=== PATIENT | male | born 1940 | race Hispanic/Latino ===

== ENCOUNTER 2016-07-12 17:50 | Inpatient (IN) | payer MEDICARE, OTHER ==
[2016-07-12 18:36] LABS: BASO % 0.7 % (0.0-2.0); EOS # 0.2 K/uL (0.0-0.7); EOS % 2.8 % (0.0-4.0); HEMATOCRIT 47.1 % (35.0-51.0); LYMPH # 1.4 K/uL (1.0-4.3); LYMPH % 19.5 % (20.0-40.0); MEAN CELL VOLUME 89.3 fL (80.0-94.0); MEAN CORPUSCULAR HEMOGLOBIN 29.7 pg (27.0-31.0); MEAN CORPUSCULAR HGB CONC 33.2 g/dL (33.0-37.0); MEAN PLATELET VOLUME 8.9 fL (7.2-11.7); MONO # 0.5 K/uL (0.0-0.8); MONO % 7.4 % (0.0-10.0); NRBC % 0.1 % (0.0-2.0); WHITE BLOOD COUNT 7.1 K/uL (4.8-10.8)
[2016-07-12 18:40] LABS: CHLORIDE 101 mmol/L (98-107); POTASSIUM 4.1 mmol/L (3.6-5.2); SODIUM 141 mmol/L (132-148)
[2016-07-12 18:42] LABS: GFR AFRICAN-AMERICAN > 60
[2016-07-12 18:43] LABS: ALB/GLOB RATIO 1.6 (1.0-2.1); ALKALINE PHOSPHATASE 38 U/L (38-126); ALT/SGPT 40 U/L (21-72); AST/SGOT 41 U/L (17-59); BILIRUBIN,TOTAL 0.4 mg/dL (0.2-1.3); BLOOD UREA NITROGEN 21 mg/dL (9-20); CALCIUM 8.7 mg/dl (8.6-10.4); CARBON DIOXIDE 29 mmol/L (22-30); GLUCOSE,RANDOM 94 mg/dL (75-110)
[2016-07-12 19:14] LABS: THYROID STIMULATING HORMONE 2.34 mIU/L (0.46-4.68)
--- NOTE | 2016-07-12 19:34 | C.PDOC ---
History Of Present Illness Pt had a near-syncopal episode yesterday. He went to see Dr. Stacy today who performed an EKG which showed complete heart block. Pt is asymptomatic today. Time Seen by Provider: 07/12/16 18:20 History Per: Patient, Family, Other (Dr. Stacy) Onset/Duration Of Symptoms: Days (1) Current Symptoms Are (Timing): Better Number Of Syncopal Episodes: 1 Fall Associated With With Symptoms: No Severity: Moderate Additional History Per: Prior Records - Symptoms Of CVA Recent Head Trauma: No Past Medical History Reviewed: Historical Data, Nursing Documentation, Vital Signs Vital Signs: Last Vital Signs Temp 97.9 F 07/12/16 18:09 Pulse 30 L 07/12/16 20:45 Resp 14 07/12/16 20:45 BP 180/65 H 07/12/16 20:45 Pulse Ox 98 07/12/16 20:45 - Medical History PMH: HTN Surgical History: No Surg Hx Family History: States: Unknown Family Hx - Social History Hx Alcohol Use: Yes Hx Substance Use: No Review Of Systems Except As Marked, All Systems Reviewed And Found Negative. Constitutional: Negative for: Fever Cardiovascular: Negative for: Chest Pain Respiratory: Negative for: Shortness of Breath Gastrointestinal: Negative for: Vomiting, Abdominal Pain Musculoskeletal: Negative for: Neck Pain, Leg Pain Skin: Negative for: Rash Neurological: Negative for: Weakness, Numbness, Seizures, Altered Mental Status Physical Exam - Physical Exam Appears: Non-toxic, No Acute Distress Skin: Normal Color, Warm, Dry, No Rash Head: Atraumatic, Normacephalic Eye(s): bilateral: PERRL, EOMI Neck: Normal ROM, Supple Chest: Symmetrical Cardiovascular: Rhythm Regular (brachycardia) Respiratory: Normal Breath Sounds, No Accessory Muscle Use Gastrointestinal/Abdominal: Soft, No Tenderness Back: No CVA Tenderness Extremity: Normal ROM, No Pedal Edema, No Calf Tenderness, No Deformity Neurological/Psych: Oriented x3, Normal Cognition, Normal Motor, Normal Sensation ED Course And Treatment - Laboratory Results Result Diagrams: 07/12/16 18:27 07/12/16 18:27 ECG: Interpreted By Me, Viewed By Me ECG Rhythm: 3rd Degree HB, Nonspecific Changes ECG Interpretation: Abnormal Rate From EC O2 Sat by Pulse Oximetry: 97 Pulse Ox Interpretation: Normal - Radiology CXR: Interpreted by Me, Viewed By Me CXR Interpretation: Yes: No Acute Disease - Physician Consult Information Physician Contacted: Jd Malik Outcome Of Conversation: He will see pt in the hospital and evaluate for pacemaker. Progress - Interventions Interventions:: Observation, Oxygen - Data Reviewed Data Reviewed: Lab, Diagnostic imaging, EKG, Old records - Patient Status Patient status: Unchanged - Critical Care Citical Care: Excluding Proc Time Critical Care Time: 45 minutes - Continuity of Care Discussed patient case with:: Patient, Family-HIPPA compliant, ED Nurse, PMD Discussed pt. case with [employer] consultant/specialty: Cardiology, Pulmonary/Crit. Care - Patient Plan Patient Plan: Admission, ICU Disposition Discussed With : Bo Stacy Comment: He saw pt in the ED and wants pt admitted to the ICU under his service. Doctor Will See Patient In The: ED Counseled Patient/Family Regarding: Studies Performed, Diagnosis - Disposition Disposition: HOSPITALIZED Disposition Time: 19:36 Condition: SERIOUS - Clinical Impression Clinical Impression: Complete heart block
[2016-07-12] MEDS ORDERED: Glucagon Recombinant 1 mg Inj IV STA ×3 (19:40→21:12)
[2016-07-12] MEDS ORDERED: Glucagon Recombinant 1 mg Inj ONE (20:13)
--- NOTE | 2016-07-12 21:04 | HP ---
Present in the Emergency Room. CHIEF COMPLAINT: Slight short of breath after carrying a heavy bag and climbing 1 flight of stairs from the basement. HISTORY OF PRESENT ILLNESS: The patient is a 75-year-old white male known to me for many years with hypertension on beta mariah, metoprolol and came to the office today. He noticed some shortness of breath with climbing the stairs yesterday, actually on the day before, with some heavy bag or appliance of about 45 pounds. He was totally fine after that and he carried on his normal routine without any problems. Today, when I returned the call, he was taking a shower and I advised him to come to the office. In the office, he was totally asymptomatic at 100%. We went to the examining room. Blood pressure was normal. He has lost 3 pounds from last visit, 223 I believe, and blood pressure was about 130/70. The pulse was low; however, he usually runs a slight sinus bradycardia due to metoprolol that he takes for many , many years, over a decade or so, 200 mg once a day. Lungs were clear on physical exam. Other than overweight, he was unremarkable except for the bradycardia. I had already advised him to decrease the metoprolol, to stop it altogether, to come back to the office the following week, and we were planning on doing an echocardiogram the following week. While in the office, I said why do we not do an EKG while you are here and the EKG demonstrated complete heart block with a rate of about 35 beats per minute, right bundle branch block type pattern, escape ventricular rhythm, totally 100% asymptomatic. The was with him and we had a very long conversation, over an hour. I advised him that he needed to be hospitalized and he wanted to come to the hospital next week, because he had a lot of things to do in the house over the next few days, etc., etc. Finally, I convinced him to come here to the Emergency Room. I spoke with Dr. Knowles and advised her that we were sending the patient with a complete heart block, totally asymptomatic, and he wanted to drive himself. We had a vaguely discussion and finally the drove him to the Emergency Room. I gave him a copy of the electroardiogram. Since arrival here, he has remained totally asymptomatic. His complete heart block rate varies around 32-35 or so per minute, blood pressure right now is a little hypertensive 170/80-90, because he was very stressed. Respiratory rate and O2 saturation is unremarkable. While in the office with the patient and his , and after speaking with Dr. Knowles in the Emergency Room, I called Dr. Malik the EP and made him aware that I needed his help with consult and his appropriate management because of the complete heart block that this patient had and we are going to obviously hold the metoprolol and hope that perhaps this will go away; I doubt it. PAST MEDICAL HISTORY: Other than the hypertension, he has no big medical issues. ALLERGIES: HE IS ALLERGIC TO PENICILLIN. SOCIAL HISTORY: Nonsmoker. Retired from [employer] in [place] years ago. . Daughter, who I spoke with this afternoon when they were in the office. MEDICATIONS ON ADMISSION: Metoprolol 200 mg once a day. No other medication that I know. REVIEW OF SYSTEMS: Denies any chest pain. That shortness of breath that he had yesterday or the day before when he was carrying heavy equipment, 45 pounds or over, from the basement up that concerned him. Other than that, no other symptoms. Rest of the review of systems otherwise negative. PHYSICAL EXAMINATION: GENERAL: Reveals an elderly male about 10 years younger than stated age, no distress, although now in the Emergency Room, he is a little stressed. SKIN: Warm, dry, no cyanosis or edema. HEENT: Totally unremarkable. NECK: Supple, no lymphadenopathy or thyromegaly. Jugular veins not distended. CHEST: Lungs totally clear to auscultation. CARDIAC: Jugular veins and carotids are normal. I do not see any kind of radha waves to be honest. Precordium, no thrill. Auscultation reveals heart sounds bradycardic as mentioned. Complete heart block and systolic ejection murmur along the sternal border. ABDOMEN: Obese. No gross organomegaly, no localized tenderness. CENTRAL NERVOUS SYSTEM: Unremarkable. COMPLIMENTARY DATA: I wager at this point aside from an EKG that was repeated and obviously showing the complete heart block. Although the chest x-ray, I was told, looks clear; we are awaiting the report. IMPRESSION: 1. Complete heart block, most likely secondary to degenerative changes in His bundle system. 2. Hypertensive heart disease. PLAN: He will be monitored in ICU and I spoke on the phone with Dr. Malik. If this does not clear, obviously, the patient will have a permanent pacemaker. In the meantime, he has a external pacemaker attached to pads. I spoke with Dr. Chand in great details in the ER. The patient is totally asymptomatic at this point and just watch him very closely. Obviously, metoprolol is on hold. A few years ago here, he underwent a Lexiscan stress test which showed grossly normal perfusion and left ventricular systolic function with ejection fraction mildly depressed, which is the same years ago when he had a stress test at another institution by somebody else. His underlying EKG previous left bundle branch block. Bo Stacy MD cc: [id number] TT: 07/12/2016 21:03:39 keshawn STAHL
[2016-07-12] MEDS ORDERED: Glucagon Recombinant 1 mg Inj SC PRN ×2 (21:28→21:31)
--- NOTE | 2016-07-12 21:31 | CP.PCM.CON ---
History of Present Illness - History of Present Illness History of Present Illness: This is a very pleasant 75 year old male with PMH of HTN with daily treatment of toprol XL 200 mg, last dose was this morning. As per patient he lifted something heavy last tuesday (3 days ago) and felt a little sob, once he stopped heavy activity the feeling went away. Since then he feels a little dizzy "for a couple of seconds" every time he goes up the stairs. No other symptoms, feeling very well, bp on the higher side, temperature wnl, he does not take other medication other than toprol and MVT with Zn. He went to see Dr. Bo Stacy who diagnosed him with complete heart block and send him to the ER. He got 4 mg of glucagon in ER with no response of HR, but he is 113 Kg, will give additional 5 mg and observe only with prn glucagon 10 mg q1h. Most likely he has been with complete heart block since tuesday. Only liquids for now. Discussed case with Dr. Malik. 10 ros asked and negative social: ex smoker, no alcohol, no drugs FH: not relevant for the case PMH: HTN NKDA PE: bp 189/73 mmhg, hr 23 bpm, rr 16 bpm, T 97.9 F aaox3 s1, s2 irregular, bradycardia lungs good bilateral air movement abdomen global soft, non tender good muscle tone/strength skin intact a/p: 3rd degree AV block: asymptomatic, external pacemaker connected , glucagon drip , angela liquids Past Patient History - Infectious Disease Hx of Infectious Diseases: None - Past Social History Smoking Status: Former Smoker - CARDIAC Hx Hypertension: Yes - PSYCHIATRIC Hx Substance Use: No - SURGICAL HISTORY Hx Surgeries: No Meds Allergies/Adverse Reactions: Allergies Allergy/AdvReac Type Severity Reaction Status Date / Time No Known Allergies Allergy Verified 07/12/16 18:12 - Medications Medications: Current Medications Glucagon (Glucagen Diagnostic Kit) 1 mg SC Q1H PRN PRN Reason: Other Results - Vital Signs Recent Vital Signs: Last Vital Signs Temp 97.9 F 07/12/16 18:09 Pulse 30 L 07/12/16 20:45 Resp 14 07/12/16 20:45 BP 180/65 H 07/12/16 20:45 Pulse Ox 97 07/12/16 21:29 - Labs Result Diagrams: 07/12/16 18:27 07/12/16 18:27
[2016-07-12] MEDS ORDERED: SODIUM CHLORIDE 0.9% IV ONE (22:15)
[2016-07-12] MEDS ORDERED: GLUCAGON IV ONE (22:15)
[2016-07-13 07:01] LABS: CHLORIDE 103 mmol/L (98-107); POTASSIUM 4.8 mmol/L (3.6-5.2); SODIUM 139 mmol/L (132-148)
[2016-07-13 07:03] LABS: GFR AFRICAN-AMERICAN > 60
[2016-07-13 07:04] LABS: BLOOD UREA NITROGEN 23 mg/dL (9-20); CALCIUM 8.4 mg/dl (8.6-10.4); CARBON DIOXIDE 24 mmol/L (22-30); GLUCOSE,RANDOM 75 mg/dL (75-110)
[2016-07-13 07:17] LABS: FT3 3.67 pg/mL (2.77-5.27)
[2016-07-13 07:31] LABS: THYROID STIMULATING HORMONE 1.26 mIU/L (0.46-4.68)
--- NOTE | 2016-07-13 08:21 | CP.CCUPN ---
Addendum entered and electronically signed by Kim Soliz DO 07/13/16 13:45 : 07/13/16 Cardiac Cath- 50% stenosis LAD. The patient is s/p transvenous pacemaker placement and cardiac catheterization with Dr. Rodriguez. The patient's pacer is set to 60bpm. Avoid beta mariah medications (Holding home Toprol XL)- BP control with Cozaar 50mg PO daily supine x 3 hours, then head of bed can be elevated to 45* Original Note: <Kim Soliz - Last Filed: 07/13/16 10:36> CCU Subjective - Physician Review Subjective (Free Text): Patient was seen and examined at bedside. 75M with PMHx of HTN (metoprolol XL 200mg PO daily) was sent to the ED, due to an abnormal EKG that was done in his PMD's office. Patient was found to have 3rd degree heart block, with HR in the 20s. Cardiology was consulted, Dr. Malik, patient was sent to the [facility] s /p transvenous pacing. Plan is for pacemaker tomorrow. Patient currently has no dizziness, headaches, chest pain, or SOB. CCU Objective - Vital Signs / Intake & Output Vital Signs (Last 4 hours): Vital Signs Pulse Resp BP Pulse Ox 07/13/16 07:00 54 L 18 140/70 99 Intake and Output (Last 8hrs): Intake & Output 07/12/16 07/13/16 07/13/16 22:59 06:59 14:59 Intake Total 50 0 0 Output Total 300 0 0 Balance -250 0 0 Intake: Oral 50 0 0 Output: Urine 300 0 0 Urine, Voided 300 0 0 - Physical Exam Head: Positive for: Atraumatic, Normocephalic Pupils: Positive for: PERRL Extroacular Muscles: Positive for: EOMI Conjunctiva: Positive for: Normal Mouth: Positive for: Moist Mucous Membranes Neck: Positive for: Normal Range of Motion Respiratory/Chest: Positive for: Clear to Auscultation, Good Air Exchange. Negative for: Respiratory Distress, Accessory Muscle Use, Decreased Breath Sounds Cardiovascular: Positive for: Bradycardic Abdomen: Positive for: Normal Bowel Sounds. Negative for: Tenderness, Distention Upper Extremity: Positive for: Normal Inspection, NORMAL PULSES. Negative for: Cyanosis, Edema Lower Extremity: Positive for: Normal Inspection, NORMAL PULSES. Negative for: Edema, CALF TENDERNESS Skin: Positive for: Warm, Dry, Normal Color Psychiatric: Positive for: Alert, Oriented x 3 - Medications Active Medications: Active Medications Generic Name Dose Route Start Last Admin Trade Name Freq PRN Reason Stop Dose Admin Acetaminophen 650 mg 07/12/16 21:52 Tylenol 325mg Tab PO Q6 PRN Pain, Mild (1-3) Ondansetron HCl 4 mg 07/12/16 22:15 Zofran Inj IVP Q6H PRN Nausea/Vomiting Pantoprazole Sodium 40 mg 07/13/16 10:00 Protonix Ec Tab PO DAILY JORDAN - Patient Studies Lab Studies: Lab Studies 07/13/16 07/13/16 Range/Units 06:34 06:34 Sodium 139 (132-148) mmol/L Potassium 4.8 (3.6-5.2) mmol/L Chloride 103 (98-107) mmol/L Carbon Dioxide 24 (22-30) mmol/L Anion Gap 16 (10-20) BUN 23 H (9-20) mg/dL Creatinine 1.1 (0.8-1.5) MG/DL Est GFR ( Amer) > 60 Est GFR (Non-Af Amer) > 60 Random Glucose 75 (75-110) mg/dL Calcium 8.4 L (8.6-10.4) mg/dl Free T4 1.08 (0.78-2.19) ng/dL TSH 3rd Generation 1.26 (0.46-4.68) mIU/L Laboratory Results - last 24 hr 07/13/16 07/13/16 06:34 06:34 Sodium 139 Potassium 4.8 Chloride 103 Carbon Dioxide 24 Anion Gap 16 BUN 23 H Creatinine 1.1 Est GFR ( Amer) > 60 Est GFR (Non-Af Amer) > 60 Random Glucose 75 Calcium 8.4 L Free T4 1.08 TSH 3rd Generation 1.26 Critical Care Progress Note - Nutrition Nutrition: Nutrition Category Date Time Status NPO Diet [DIET] Diets 07/13/16 Breakfast Active Assessment/Plan - Assessment and Plan (Free Text) Assessment: 75 M with PMHx of HTN was sent from his PMD's office to the ED for 3rd degree heart block found on EKG. Plan: 3rd Degree Heart Block * HR 20-30s * Glucagon was given for reversal of B-mariah * Cardiology, Dr. Malik consulted- help appreciated. Patient underwent transvenous cardiac pacing today. Plan is for pacemaker placement tomorrow. * TSH, T4 WNL HTN * Held home medication: Metoprolol XL 200mg PO daily Prophylaxis * GI PPX: Protonix 40mg PO Daily * DVT PPX: Heparin 5000u SC Q12, SCDs * Heart Healthy Diet, will be held NPO tonight for pacemaker placement tomorrow * Zofran PRN for nausea DW Heydi Sky DO, PGY-1 <Arcadio Rowe S - Last Filed: 07/13/16 17:46> CCU Objective - Vital Signs / Intake & Output Vital Signs (Last 4 hours): Vital Signs Temp Pulse Resp BP Pulse Ox 07/13/16 17:00 64 16 168/79 H 95 07/13/16 16:00 97.3 F L 60 18 156/79 H 98 07/13/16 15:00 57 L 16 112/64 95 07/13/16 14:00 67 16 136/56 L 94 L Intake and Output (Last 8hrs): Intake & Output 07/13/16 07/13/16 07/13/16 06:59 14:59 22:59 Intake Total 0 510 180 Output Total 0 550 0 Balance 0 -40 180 Intake: Intake, IV Amount 90 180 Left Antecubital 90 180 Oral 0 420 Output: Urine 0 550 0 Urine, Voided 0 550 0 - Medications Active Medications: Active Medications Generic Name Dose Route Start Last Admin Trade Name Freq PRN Reason Stop Dose Admin Acetaminophen 650 mg 07/12/16 21:52 Tylenol 325mg Tab PO Q6 PRN Pain, Mild (1-3) Heparin Sodium (Porcine) 5,000 units 07/13/16 10:00 07/13/16 12:19 Heparin SC 5,000 units Q12 JORDAN Administration Sodium Chloride 1,000 mls @ 60 mls/hr 07/13/16 12:45 07/13/16 13:33 Sodium Chloride 0.45% IV 60 mls/hr .[id number] JORDAN Administration Losartan Potassium 50 mg 07/14/16 10:00 Cozaar PO DAILY JORDAN Ondansetron HCl 4 mg 07/12/16 22:15 Zofran Inj IVP Q6H PRN Nausea/Vomiting Pantoprazole Sodium 40 mg 07/13/16 10:00 07/13/16 12:19 Protonix Ec Tab PO 40 mg DAILY JORDAN Administration - Patient Studies Lab Studies: Lab Studies 07/13/16 07/13/16 07/13/16 Range/Units 11:09 11:09 06:34 Sodium (132-148) mmol/L Potassium (3.6-5.2) mmol/L Chloride (98-107) mmol/L Carbon Dioxide (22-30) mmol/L Anion Gap (10-20) BUN (9-20) mg/dL Creatinine (0.8-1.5) MG/DL Est GFR ( Amer) Est GFR (Non-Af Amer) Random Glucose (75-110) mg/dL Calcium (8.6-10.4) mg/dl Free T4 1.08 (0.78-2.19) ng/dL TSH 3rd Generation (0.46-4.68) mIU/L Hepatitis A IgM Ab Negative (NEGATIVE) Hep Bs Antigen Negative (NEGATIVE) Hep B Core IgM Ab Negative (NEGATIVE) Hepatitis C Antibody Negative (NEGATIVE) HIV 1&2 Antibody Screen Negative (NEGATIVE) 07/13/16 Range/Units 06:34 Sodium 139 (132-148) mmol/L Potassium 4.8 (3.6-5.2) mmol/L Chloride 103 (98-107) mmol/L Carbon Dioxide 24 (22-30) mmol/L Anion Gap 16 (10-20) BUN 23 H (9-20) mg/dL Creatinine 1.1 (0.8-1.5) MG/DL Est GFR ( Amer) > 60 Est GFR (Non-Af Amer) > 60 Random Glucose 75 (75-110) mg/dL Calcium 8.4 L (8.6-10.4) mg/dl Free T4 (0.78-2.19) ng/dL TSH 3rd Generation 1.26 (0.46-4.68) mIU/L Hepatitis A IgM Ab (NEGATIVE) Hep Bs Antigen (NEGATIVE) Hep B Core IgM Ab (NEGATIVE) Hepatitis C Antibody (NEGATIVE) HIV 1&2 Antibody Screen (NEGATIVE) Laboratory Results - last 24 hr 07/13/16 07/13/16 07/13/16 06:34 06:34 11:09 Sodium 139 Potassium 4.8 Chloride 103 Carbon Dioxide 24 Anion Gap 16 BUN 23 H Creatinine 1.1 Est GFR ( Amer) > 60 Est GFR (Non-Af Amer) > 60 Random Glucose 75 Calcium 8.4 L Free T4 1.08 TSH 3rd Generation 1.26 Hepatitis A IgM Ab Negative Hep Bs Antigen Negative Hep B Core IgM Ab Negative Hepatitis C Antibody Negative HIV 1&2 Antibody Screen 07/13/16 11:09 Sodium Potassium Chloride Carbon Dioxide Anion Gap BUN Creatinine Est GFR ( Amer) Est GFR (Non-Af Amer) Random Glucose Calcium Free T4 TSH 3rd Generation Hepatitis A IgM Ab Hep Bs Antigen Hep B Core IgM Ab Hepatitis C Antibody HIV 1&2 Antibody Screen Negative Critical Care Progress Note - Nutrition Nutrition: Nutrition Category Date Time Status Heart Healthy Diet [DIET] Diets 07/13/16 Lunch Active NPO Diet [DIET] Diets 07/14/16 Breakfast Active Attending/Attestation - Attestation I have personally seen and examined this patient.: Yes I have fully participated in the care of the patient.: Yes I have reviewed all pertinent clinical information: Yes Notes (Text): 07/13/16 17:42 Patient seen and examined in the intensive care unit. Case discussed with staff in the morning rounds. Status post Cardiac Cath- 50% stenosis LAD. The patient is s/p transvenous pacemaker placement Plan for permanent pacemaker tomorrow
--- NOTE | 2016-07-13 09:36 | RAD ---
PROCEDURE: CHEST RADIOGRAPH, 1 VIEW HISTORY: Bradycardia COMPARISON: None available. FINDINGS: LUNGS: Mild venous congestion. Right hilar prominence. PLEURA: No pneumothorax or pleural fluid seen. CARDIOVASCULAR: Mild cardiomegaly. OSSEOUS STRUCTURES: No significant abnormalities. VISUALIZED UPPER ABDOMEN: Normal. OTHER FINDINGS: None. IMPRESSION: Mild venous congestion. Right hilar prominence.
[2016-07-13] MEDS ORDERED: Lidocaine 2% Inj (20ml) ONE (09:39)
[2016-07-13] MEDS ORDERED: Midazolam 2 MG/2 ML VIAL ONE (09:50)
[2016-07-13] MEDS ORDERED: Iohexol 350mg/ml 100 ML ONE (10:07)
--- NOTE | 2016-07-13 11:31 | CP.PCM.CON ---
<Rivera Arriola - Last Filed: 07/13/16 17:07> History of Present Illness - History of Present Illness History of Present Illness: Cardiology Consultation Note Dr. Malik CC: Complete Heart Block HPI: This is a 75 year old male with a PMH notable for HTN presenting for cardiac evaluation of SOB and dizziness 2/2 to complete heart block with symptomatic bradycardia. The patient notes that his only home medication is toprol XL 200mg PO daily. The patient reports compliance with the medication. The patient notes that his symptoms of SOB, dizziness, and lightheadedness started abruptly on Tuesday (07/09/16) when he was moving heavy boxes up a flight of stairs. The episodes have been intermittent and last for approximately 2 minutes. The patient is currently asymptomatic. The patient is s/p transvenous pacemaker placement and cardiac catheterization with Dr. Rodriguez. The patient's pacer is set to 60bpm. The patient tolerated the procedure well. The patient presently denies all cardiopulmonary complaints. Previously, the patient had an EKG on 07/12/16 which revealed complete, 3rd degree heart block at 31bpm, a physiologic axis, normal QRS duration and QTc interval, T wave abnormality in lateral leads, inferior infarct age undetermined , and RBBB. PMH: HTN Medications: Metoprolol 200 mg PO daily Allergies: NKDA PSH: wisdom teeth extraction over 10 years ago FH: Father of PR at 72 y.o., denies other familiar cardiac history Social: Quit smoking in 1985 used to smoke 1 pack every 2-3 days, drinks EtOH socially, denies illicit drug use, eats balanced diet. Hospitalizations: Denies PMD: Dr. Stacy Review of Systems - Review of Systems All systems: reviewed and no additional remarkable complaints except - Constitutional Constitutional: absent: Chills, Fatigue, Fever - EENT Eyes: absent: Blurred Vision, Change in Vision Ears: absent: Decreased Hearing, Tinnitus Nose/Mouth/Throat: absent: Nose Pain, Odynophagia, Facial Pain - Cardiovascular Cardiovascular: Lightheadedness, Slow Heart Rate. absent: Chest Pain, Irregular Heart Rhythm, Palpitations, Syncope - Respiratory Respiratory: Dyspnea, Dyspnea on Exertion. absent: Cough - Gastrointestinal Gastrointestinal: absent: Abdominal Pain, Constipation, Diarrhea, Nausea, Vomiting - Genitourinary Genitourinary: absent: Change in Urinary Stream, Difficulty Urinating - Musculoskeletal Musculoskeletal: absent: Arthralgias, Stiffness, Tingling - Integumentary Integumentary: absent: Lesions, Rash, Wounds - Neurological Neurological: absent: Memory Loss, Sensory Deficit, Syncope, Tingling, Tremor, Vertigo, Weakness - Endocrine Endocrine: absent: Cold Intolorance, Heat Intolorance, Polydipsia, Polyphagia Past Patient History - Infectious Disease Hx of Infectious Diseases: None - Past Medical History & Family History Past Medical History?: Yes - Past Social History Smoking Status: Former Smoker - CARDIAC Hx Hypertension: Yes - PULMONARY Hx Respiratory Disorders: No - NEUROLOGICAL Hx Neurological Disorder: No - HEENT Hx HEENT Problems: Yes Other/Comment: eyeglasses for reading - RENAL Hx Chronic Kidney Disease: No - ENDOCRINE/METABOLIC Hx Endocrine Disorders: No - HEMATOLOGICAL/ONCOLOGICAL Hx Blood Disorders: No - INTEGUMENTARY Hx Dermatological Problems: No - MUSCULOSKELETAL/RHEUMATOLOGICAL Hx Musculoskeletal Disorders: No Hx Falls: No - GASTROINTESTINAL Hx Gastrointestinal Disorders: No - GENITOURINARY/GYNECOLOGICAL Hx Genitourinary Disorders: No - PSYCHIATRIC Hx Substance Use: No - SURGICAL HISTORY Hx Surgeries: No - ANESTHESIA Hx Anesthesia: No Hx Anesthesia Reactions: No Hx Malignant Hyperthermia: No Has any member of the family had a problem w/ anesthesia?: No Meds Allergies/Adverse Reactions: Allergies Allergy/AdvReac Type Severity Reaction Status Date / Time No Known Allergies Allergy Verified 07/12/16 18:12 - Medications Medications: Current Medications Acetaminophen (Tylenol 325mg Tab) 650 mg PO Q6 PRN PRN Reason: Pain, Mild (1-3) Heparin Sodium (Porcine) (Heparin) 5,000 units SC Q12 [facility] Ondansetron HCl (Zofran Inj) 4 mg IVP Q6H PRN PRN Reason: Nausea/Vomiting Pantoprazole Sodium (Protonix Ec Tab) 40 mg PO DAILY [facility] Physical Exam - Constitutional Appears: Well, No Acute Distress - Head Exam Head Exam: ATRAUMATIC, NORMAL INSPECTION, NORMOCEPHALIC - Eye Exam Eye Exam: EOMI, Normal appearance - ENT Exam ENT Exam: Mucous Membranes Moist, Normal Exam - Neck Exam Neck exam: Positive for: Full Rom, Normal Inspection. Negative for: Lymphadenopathy, Tenderness Additional comments: transvenous pacing wire in place. no erythema, no edema, no exudate - Respiratory Exam Respiratory Exam: Clear to Auscultation Bilateral, NORMAL BREATHING PATTERN. absent: Rales, Rhonchi, Wheezes - Cardiovascular Exam Cardiovascular Exam: REGULAR RHYTHM, RRR, +S1, +S2. absent: Diastolic murmur, Systolic Murmur Additional comments: Transvenous pacing wire present (60bpm rate) incision area is clean, dry, intact - GI/Abdominal Exam GI & Abdominal Exam: Normal Bowel Sounds, Soft. absent: Distended, Firm, Guarding, Tenderness - Extremities Exam Extremities exam: Positive for: normal capillary refill, normal inspection, pedal pulses present Additional comments: cath site inspection: no bruit no hematoma palpable dressing C/D/I - Neurological Exam Neurological exam: Alert, CN II-XII Intact, Oriented x3 - Skin Skin Exam: Dry, Intact, Normal Color, Warm Results - Vital Signs Recent Vital Signs: Last Vital Signs Temp 98.5 F 07/13/16 03:56 Pulse 54 L 07/13/16 07:00 Resp 18 07/13/16 07:00 BP 140/70 07/13/16 07:00 Pulse Ox 99 07/13/16 07:00 - Labs Result Diagrams: 07/12/16 18:27 07/13/16 06:34 Labs: Laboratory Results - last 24 hr 07/13/16 07/13/16 06:34 06:34 Sodium 139 Potassium 4.8 Chloride 103 Carbon Dioxide 24 Anion Gap 16 BUN 23 H Creatinine 1.1 Est GFR ( Amer) > 60 Est GFR (Non-Af Amer) > 60 Random Glucose 75 Calcium 8.4 L Free T4 1.08 TSH 3rd Generation 1.26 Assessment & Plan (1) Complete heart block Assessment and Plan: Plan for permanent pacemaker placement tomorrow 3pm with Dr. Malik - consent signed in chart - patient and family aware of procedure - all questions and concerns addressed on rounds at the bedside Transvenous pacemaker placed this morning by Dr. Rodriguez (set to 60bmp)- pacing wire at RV apex Hold AM Heparin dose- resume this evening 22:00 PM 1/2 NS 60ml/hr x 12hr Avoid beta mariah medications (Holding home Toprol XL)- BP control with Cozaar 50mg PO daily supine x 3 hours, then head of bed can be elevated to 45* Tylenol 650mg PO q6 PRN pain (1-3) 07/13/16 Cardiac Cath- 50% stenosis LAD- official report pending 07/12/16 EKG- complete, 3rd degree heart block at 31bpm, a physiologic axis, normal QRS duration and QTc interval, T wave abnormality in lateral leads, inferior infarct age undetermined, and RBBB Case Discussed with Dr. King Arriola PGY1 Status: Acute (2) HTN (hypertension) Assessment and Plan: hold toprol for now normotensive currently Cozaar 50mg PO daily for HTN (hold SBP <100mmHg) Status: Chronic - Date & Time Date: 07/13/16 Time: 12:43 <Jd Malik - Last Filed: 08/12/16 10:10> Results - Vital Signs Recent Vital Signs: Last Vital Signs Temp 98.3 F 07/15/16 12:00 Pulse 76 07/15/16 12:00 Resp 16 07/15/16 12:00 BP 145/80 07/15/16 11:28 Pulse Ox 96 07/15/16 12:00 - Labs Result Diagrams: 07/15/16 06:15 07/15/16 06:15 Attending/Attestation - Attestation I have personally seen and examined this patient.: Yes I have fully participated in the care of the patient.: Yes I have reviewed all pertinent clinical information: Yes Notes (Text): 08/12/16 10:10 Pt with 3rd degree heart block for ppm stable bp tcp at bedside
[2016-07-13] MEDS: Pantoprazole 40 mg EC Tab PO SCH (12:19)
[2016-07-13] MEDS: Sodium Chloride 0.45% 1,000 ML IV SCH (13:33)
--- NOTE | 2016-07-13 17:05 | PN ---
DATE: 07/13/2016 LOCATION: Presently in ICU bed #6. Remains totally stable and totally asymptomatic. He denies any shortness of breath, any palpitation, any dizziness or chest pain. This morning I called the unit and I was told that he was scheduled for a transvenous pacemaker as well as a left cardiac catheterization, done by Dr. Rodriguez. I came to the hospital and I spoke personally with Dr. Rodriguez. These 2 procedures were totally uneventful. At this moment, he is lying flat in bed after the procedure. The temporary pacemaker has been set around 50 beats per minute and is pacing quite well. He has a dressing in the right groin site of the entry for the left cardiac catheterization, that demonstrated basically normal coronary with minimal nonobstructive disease in the mid to distal LAD and somewhere about 40% to 50% or perhaps 60% totally inconsequential. The left ventricular function appears to be mildly depressed. REVIEW OF SYSTEMS: Rest of the review of systems otherwise negative. PHYSICAL EXAMINATION: GENERAL: Alert, oriented, in good mood, in no distress whatsoever. VITAL SIGNS: As follows: Blood pressure in the range of about 120, 130 over 80 , the highest at 150/80. He is afebrile and respiratory rate, O2 saturations unremarkable. NECK: From the cardiopulmonary viewpoint, jugular veins remain flat. LUNGS: Clear. HEART: Sounds normal in intensity and regular with slight systolic murmur, which is chronic. ABDOMEN: No localized tenderness. CENTRAL NERVOUS SYSTEM: Totally unremarkable. COMPLIMENTARY DATA: Today shows electrolytes are within normal limits. Creatinine of 1.1. Yesterday, some of the blood tests ____ of the time on admission, which included a thyroid profile and all blood chemistries, CBCs, etc., they were all grossly unremarkable. I see here some serologic tests for hepatitis etc., etc. We are looking into that and the reason for this. Chest x-ray done yesterday, as I mentioned, showed no obvious problems, mild cardiomegaly, but this was an AP view, so difficult to read too much into that. IMPRESSION: 1. Complete heart block. 2. Hypertensive heart disease. PLAN: I had a long discussion with Dr. Rodriguez, who had been told by Dr. Malik to do the stent and again later on I spoke with Dr. Malik concerning how soon to proceed with permanent pacing. Hopefully, this will be, according to him, probably will be done tomorrow afternoon. Insofar as the EKG , one cannot read too much into this EKG since it shows complete heart block with some ventricular escape rhythm. No one can mention anything about an inferior infarction, etc. at this point in time. He is totally benign at this moment. We will discuss in more details later on personally. While I was there, the came and I had a very long conversation again with her and they are aware that most likely permanent pacemaker will be done tomorrow. Bo Stacy MD cc: [id number] TT: 07/13/2016 17:04:16 Confirmation # [id number] Dictation # [id number] sn MTDD
--- NOTE | 2016-07-13 20:42 | CP.PCM.PN ---
Subjective - Date & Time of Evaluation Date of Evaluation: 07/13/16 Time of Evaluation: 12:10 - Subjective Subjective: Patient with complete Heart Block Patient s/p Cath and TVP placement Non Obstructive coronaries EF 40% TVP placed from Right IJ Further management as per Dr. Malik and Dr. Stacy I will sign off Thank youJ Objective - Vital Signs/Intake and Output Vital Signs (last 24 hours): Temp Pulse Resp BP Pulse Ox 97.3 F L 61 14 136/70 92 L 07/13/16 16:00 07/13/16 20:00 07/13/16 20:00 07/13/16 19:15 07/13/16 20:00 Intake and Output: 07/13/16 07/14/16 18:59 06:59 Intake Total 1110 Output Total 1025 Balance 85 - Medications Medications: Current Medications Acetaminophen (Tylenol 325mg Tab) 650 mg PO Q6 PRN PRN Reason: Pain, Mild (1-3) Heparin Sodium (Porcine) (Heparin) 5,000 units SC Q12 [facility] Last Admin: 07/13/16 12:19 Dose: 5,000 units Sodium Chloride (Sodium Chloride 0.45%) 1,000 mls @ 60 mls/hr IV .[id number] [facility] Last Admin: 07/13/16 13:33 Dose: 60 mls/hr Losartan Potassium (Cozaar) 50 mg PO DAILY [facility] Ondansetron HCl (Zofran Inj) 4 mg IVP Q6H PRN PRN Reason: Nausea/Vomiting Pantoprazole Sodium (Protonix Ec Tab) 40 mg PO DAILY [facility] Last Admin: 07/13/16 12:19 Dose: 40 mg - Labs Labs: 07/13/16 06:34 PT 11.0 SECONDS (9.7-12.2) 07/12/16 18:27 INR 1.0 07/12/16 18:27 APTT 30 SECONDS (21-34) 07/12/16 18:27
[2016-07-14] MEDS: Sodium Chloride 0.45% 1,000 ML IV SCH (06:21)
[2016-07-14 06:25] LABS: BASO % 0.6 % (0.0-2.0); EOS # 0.2 K/uL (0.0-0.7); EOS % 2.8 % (0.0-4.0); MEAN CELL VOLUME 89.1 fL (80.0-94.0); MEAN CORPUSCULAR HEMOGLOBIN 29.5 pg (27.0-31.0); MEAN CORPUSCULAR HGB CONC 33.1 g/dL (33.0-37.0); MEAN PLATELET VOLUME 8.9 fL (7.2-11.7); MONO # 0.5 K/uL (0.0-0.8); MONO % 7.2 % (0.0-10.0); RED CELL DISTRIBUTION WIDTH 13.7 % (11.5-14.5); WHITE BLOOD COUNT 6.8 K/uL (4.8-10.8)
[2016-07-14 06:43] LABS: CHLORIDE 102 mmol/L (98-107); POTASSIUM 4.4 mmol/L (3.6-5.2); SODIUM 137 mmol/L (132-148)
[2016-07-14 06:45] LABS: ALB/GLOB RATIO 1.6 (1.0-2.1); AST/SGOT 29 U/L (17-59); CARBON DIOXIDE 23 mmol/L (22-30); GFR AFRICAN-AMERICAN > 60; TOTAL PROTEIN 6.5 g/dL (6.3-8.3)
[2016-07-14 06:46] LABS: ALKALINE PHOSPHATASE 40 U/L (38-126); ALT/SGPT 33 U/L (21-72); BLOOD UREA NITROGEN 18 mg/dL (9-20); CALCIUM 8.6 mg/dl (8.6-10.4); GLUCOSE,RANDOM 106 mg/dL (75-110); MAGNESIUM 2.1 mg/dL (1.6-2.3)
--- NOTE | 2016-07-14 09:39 | CP.PCM.PN ---
<Rivera Arriola - Last Filed: 07/14/16 18:32> Subjective - Date & Time of Evaluation Date of Evaluation: 07/14/16 Time of Evaluation: 09:36 - Subjective Subjective: Cardiology Progress Note Dr. Malik Patient seen and examined at the bedside. No acute distress. No acute events overnight. Nursing staff reports no issues. The patient reports that he had on episode of palpitations overnight that lasted approximately 1minute, but he reports that the symptoms resolved spontaneously and have not recurred. The patient is NPO for OR today for PPM placement. The patient presently denies all cardiopulmonary symptoms. 12 point review of systems performed and returned negative. Objective - Vital Signs/Intake and Output Vital Signs (last 24 hours): Temp Pulse Resp BP Pulse Ox 97.4 F L 61 15 130/70 95 07/14/16 08:00 07/14/16 08:00 07/14/16 08:00 07/14/16 08:00 07/14/16 08:00 Intake and Output: 07/14/16 07/14/16 06:59 18:59 Intake Total 1600 180 Output Total 1300 300 Balance 300 -120 - Medications Medications: Current Medications Acetaminophen (Tylenol 325mg Tab) 650 mg PO Q6 PRN PRN Reason: Pain, Mild (1-3) Heparin Sodium (Porcine) (Heparin) 5,000 units SC Q12 [facility] Last Admin: 07/13/16 21:46 Dose: Not Given Sodium Chloride (Sodium Chloride 0.45%) 1,000 mls @ 60 mls/hr IV .[id number] [facility] Last Admin: 07/14/16 06:21 Dose: 60 mls/hr Losartan Potassium (Cozaar) 50 mg PO DAILY [facility] Ondansetron HCl (Zofran Inj) 4 mg IVP Q6H PRN PRN Reason: Nausea/Vomiting Pantoprazole Sodium (Protonix Ec Tab) 40 mg PO DAILY [facility] Last Admin: 07/13/16 12:19 Dose: 40 mg - Labs Labs: 07/14/16 06:18 07/14/16 06:18 PT 11.6 SECONDS (9.7-12.2) 07/14/16 06:18 INR 1.0 07/14/16 06:18 APTT 29 SECONDS (21-34) 07/14/16 06:18 - Additional Findings Additional findings: - Constitutional Appears: Well, No Acute Distress - Head Exam Head Exam: ATRAUMATIC, NORMAL INSPECTION, NORMOCEPHALIC - Eye Exam Eye Exam: EOMI, Normal appearance - ENT Exam ENT Exam: Mucous Membranes Moist, Normal Exam - Neck Exam Neck exam: Positive for: Full Rom, Normal Inspection. Negative for: Lymphadenopathy, Tenderness - Respiratory Exam Respiratory Exam: Clear to Auscultation Bilateral, NORMAL BREATHING PATTERN. absent: Rales, Rhonchi, Wheezes - Cardiovascular Exam Cardiovascular Exam: REGULAR RHYTHM, RRR, +S1, +S2. absent: Diastolic murmur, Systolic Murmur Additional comments: Transvenous pacing wire present (60bpm rate) incision area is clean, dry, intact minimal serosanguinous drainage - GI/Abdominal Exam GI & Abdominal Exam: Normal Bowel Sounds, Soft. absent: Distended, Firm, Guarding, Tenderness - Extremities Exam Extremities exam: Positive for: normal capillary refill, normal inspection, pedal pulses present Additional comments: cath site inspection: no bruit no hematoma palpable no erythema - Neurological Exam Neurological exam: Alert, CN II-XII Intact, Oriented x3 - Skin Skin Exam: Dry, Intact, Normal Color, Warm Assessment and Plan (1) Complete heart block Assessment & Plan: Pacemaker placed - dual chamber - DDD 60/130 - Atrium: 3.5amp, 5.2 (sensing amp), 0.9V (threshold), 0.5ms (pulse width), 1084 (impedence) - Ventricle: 3.5amp, 8.3 (sensing amp), 0.7V (threshold), 0.5ms (pulse width) , 665 (impedence) - Temporary TVP removed Permanent pacemaker placement today 3pm with Dr. Malik - consent signed in chart - patient and family aware of procedure - all questions and concerns addressed on rounds at the bedside Resume Heart Healthy Diet Transvenous pacemaker placed 07/13/[address] Rodriguez (set to 60bmp)- pacing wire at RV apex Avoid beta mariah medications (Holding home Toprol XL)- BP control with Cozaar 50mg PO daily Tylenol 650mg PO q6 PRN pain (1-3) 07/13/16 Cardiac Cath- 50% stenosis LAD- official report pending 07/12/16 EKG- complete, 3rd degree heart block at 31bpm, a physiologic axis, normal QRS duration and QTc interval, T wave abnormality in lateral leads, inferior infarct age undetermined, and RBBB Case Discussed with Dr. Knig Arriola PGY1 Status: Acute (2) HTN (hypertension) Assessment & Plan: normotensive currently Cozaar 50mg PO daily for HTN (hold SBP <100mmHg) Avoid beta blockers (no home toprol) Status: Chronic <Jd Malik - Last Filed: 08/12/16 10:11> Objective - Vital Signs/Intake and Output Vital Signs (last 24 hours): Temp Pulse Resp BP Pulse Ox 98.3 F 76 16 145/80 96 07/15/16 12:00 07/15/16 12:00 07/15/16 12:00 07/15/16 11:28 07/15/16 12:00 - Labs Labs: 07/15/16 06:15 07/15/16 06:15 PT 11.6 SECONDS (9.7-12.2) 07/14/16 06:18 INR 1.0 07/14/16 06:18 APTT 29 SECONDS (21-34) 07/14/16 06:18 Attending/Attestation - Attestation I have personally seen and examined this patient.: Yes I have fully participated in the care of the patient.: Yes I have reviewed all pertinent clinical information, including history, physical exam and plan: Yes Notes (Text): 08/12/16 10:11 Patient scheduled for ppm OR today NPO
[2016-07-14] MEDS: Pantoprazole 40 mg EC Tab PO SCH (10:09)
--- NOTE | 2016-07-14 11:01 | CP.CCUPN ---
<Kim Soliz - Last Filed: 07/14/16 10:57> CCU Subjective - Physician Review Subjective (Free Text): Patient was seen and examined at bedside. 75M with PMHx of HTN (metoprolol XL 200mg PO daily) was sent to the ED, due to an abnormal EKG that was done in his PMD's office. Patient was found to have 3rd degree heart block, with HR in the 20s. Cardiology was consulted, Dr. Malik, patient was sent to the [facility] s /p transvenous pacing. Plan is for pacemaker today at 3pm. Patient is currently NPO. Patient currently has no dizziness, headaches, chest pain, or SOB. CCU Objective - Vital Signs / Intake & Output Vital Signs (Last 4 hours): Vital Signs Temp Pulse Resp BP Pulse Ox 07/14/16 10:15 97 H 12 144/71 97 07/14/16 10:00 104 H 15 97 07/14/16 09:15 61 16 112/65 93 L 07/14/16 09:13 60 16 116/68 95 07/14/16 09:00 60 14 92 L 07/14/16 08:14 130/70 07/14/16 08:00 97.4 F L 60 12 130/70 93 L 07/14/16 07:15 126 H 10 L 119/70 92 L 07/14/16 07:00 60 10 L 93 L Intake and Output (Last 8hrs): Intake & Output 07/13/16 07/14/16 07/14/16 22:59 06:59 14:59 Intake Total 780 1420 180 Output Total 725 1050 300 Balance 55 370 -120 Intake: IV 1000 Intake, IV Amount 480 420 180 Left Antecubital 480 420 180 Oral 300 0 Output: Urine 725 1050 300 Urine, Voided 725 1050 300 Other: # Voids Urine, Voided 1 - Physical Exam Head: Positive for: Atraumatic, Normocephalic Pupils: Positive for: PERRL Extroacular Muscles: Positive for: EOMI Conjunctiva: Positive for: Normal Mouth: Positive for: Moist Mucous Membranes Neck: Positive for: Normal Range of Motion Respiratory/Chest: Positive for: Clear to Auscultation, Good Air Exchange. Negative for: Respiratory Distress, Accessory Muscle Use, Decreased Breath Sounds Cardiovascular: Positive for: Bradycardic Abdomen: Positive for: Normal Bowel Sounds. Negative for: Tenderness, Distention Upper Extremity: Positive for: Normal Inspection, NORMAL PULSES. Negative for: Cyanosis, Edema Lower Extremity: Positive for: Normal Inspection, NORMAL PULSES. Negative for: Edema, CALF TENDERNESS Skin: Positive for: Warm, Dry, Normal Color Psychiatric: Positive for: Alert, Oriented x 3 - Medications Active Medications: Active Medications Generic Name Dose Route Start Last Admin Trade Name Freq PRN Reason Stop Dose Admin Acetaminophen 650 mg 07/12/16 21:52 Tylenol 325mg Tab PO Q6 PRN Pain, Mild (1-3) Heparin Sodium (Porcine) 5,000 units 07/13/16 10:00 07/13/16 21:46 Heparin SC Not Given Q12 JORDAN Sodium Chloride 1,000 mls @ 60 mls/hr 07/13/16 12:45 07/14/16 06:21 Sodium Chloride 0.45% IV 60 mls/hr .[id number] JORDAN Administration Losartan Potassium 50 mg 07/14/16 10:00 Cozaar PO DAILY JORDAN Ondansetron HCl 4 mg 07/12/16 22:15 Zofran Inj IVP Q6H PRN Nausea/Vomiting Pantoprazole Sodium 40 mg 07/13/16 10:00 07/14/16 10:09 Protonix Ec Tab PO 40 mg DAILY JORDAN Administration - Patient Studies Lab Studies: Lab Studies 07/14/16 07/14/16 07/14/16 Range/Units 06:18 06:18 06:18 WBC 6.8 (4.8-10.8) K/uL RBC 5.50 (4.40-5.90) Mil/uL Hgb 16.2 (12.0-18.0) g/dL Hct 49.0 (35.0-51.0) % MCV 89.1 (80.0-94.0) fL MCH 29.5 (27.0-31.0) pg MCHC 33.1 (33.0-37.0) g/dL RDW 13.7 (11.5-14.5) % Plt Count 121 L (130-400) K/uL MPV 8.9 (7.2-11.7) fL Neut % (Auto) 75.4 H (50.0-75.0) % Lymph % (Auto) 14.0 L (20.0-40.0) % [place] % (Auto) 7.2 (0.0-10.0) % Eos % (Auto) 2.8 (0.0-4.0) % Baso % (Auto) 0.6 (0.0-2.0) % Neut # 5.2 (1.8-7.0) K/uL Lymph # 1.0 (1.0-4.3) K/uL [place] # 0.5 (0.0-0.8) K/uL Eos # 0.2 (0.0-0.7) K/uL Baso # 0.0 (0.0-0.2) K/uL PT 11.6 (9.7-12.2) SECONDS INR 1.0 APTT 29 (21-34) SECONDS Sodium 137 (132-148) mmol/L Potassium 4.4 (3.6-5.2) mmol/L Chloride 102 (98-107) mmol/L Carbon Dioxide 23 (22-30) mmol/L Anion Gap 16 (10-20) BUN 18 (9-20) mg/dL Creatinine 1.0 (0.8-1.5) MG/DL Est GFR ( Amer) > 60 Est GFR (Non-Af Amer) > 60 Random Glucose 106 (75-110) mg/dL Calcium 8.6 (8.6-10.4) mg/dl Magnesium 2.1 (1.6-2.3) mg/dL Total Bilirubin 1.0 (0.2-1.3) mg/dL AST 29 (17-59) U/L ALT 33 (21-72) U/L Alkaline Phosphatase 40 (38-126) U/L Total Protein 6.5 (6.3-8.3) g/dL Albumin 4.0 (3.5-5.0) g/dL Globulin 2.6 (2.2-3.9) gm/dL Albumin/Globulin Ratio 1.6 (1.0-2.1) Hepatitis A IgM Ab (NEGATIVE) Hep Bs Antigen (NEGATIVE) Hep B Core IgM Ab (NEGATIVE) Hepatitis C Antibody (NEGATIVE) HIV 1&2 Antibody Screen (NEGATIVE) 07/13/16 07/13/16 Range/Units 11:09 11:09 WBC (4.8-10.8) K/uL RBC (4.40-5.90) Mil/uL Hgb (12.0-18.0) g/dL Hct (35.0-51.0) % MCV (80.0-94.0) fL MCH (27.0-31.0) pg MCHC (33.0-37.0) g/dL RDW (11.5-14.5) % Plt Count (130-400) K/uL MPV (7.2-11.7) fL Neut % (Auto) (50.0-75.0) % Lymph % (Auto) (20.0-40.0) % [place] % (Auto) (0.0-10.0) % Eos % (Auto) (0.0-4.0) % Baso % (Auto) (0.0-2.0) % Neut # (1.8-7.0) K/uL Lymph # (1.0-4.3) K/uL [place] # (0.0-0.8) K/uL Eos # (0.0-0.7) K/uL Baso # (0.0-0.2) K/uL PT (9.7-12.2) SECONDS INR APTT (21-34) SECONDS Sodium (132-148) mmol/L Potassium (3.6-5.2) mmol/L Chloride (98-107) mmol/L Carbon Dioxide (22-30) mmol/L Anion Gap (10-20) BUN (9-20) mg/dL Creatinine (0.8-1.5) MG/DL Est GFR ( Amer) Est GFR (Non-Af Amer) Random Glucose (75-110) mg/dL Calcium (8.6-10.4) mg/dl Magnesium (1.6-2.3) mg/dL Total Bilirubin (0.2-1.3) mg/dL AST (17-59) U/L ALT (21-72) U/L Alkaline Phosphatase (38-126) U/L Total Protein (6.3-8.3) g/dL Albumin (3.5-5.0) g/dL Globulin (2.2-3.9) gm/dL Albumin/Globulin Ratio (1.0-2.1) Hepatitis A IgM Ab Negative (NEGATIVE) Hep Bs Antigen Negative (NEGATIVE) Hep B Core IgM Ab Negative (NEGATIVE) Hepatitis C Antibody Negative (NEGATIVE) HIV 1&2 Antibody Screen Negative (NEGATIVE) Laboratory Results - last 24 hr 07/13/16 07/13/16 07/14/16 11:09 11:09 06:18 WBC 6.8 RBC 5.50 Hgb 16.2 Hct 49.0 MCV 89.1 MCH 29.5 MCHC 33.1 RDW 13.7 Plt Count 121 L MPV 8.9 Neut % (Auto) 75.4 H Lymph % (Auto) 14.0 L [place] % (Auto) 7.2 Eos % (Auto) 2.8 Baso % (Auto) 0.6 Neut # 5.2 Lymph # 1.0 [place] # 0.5 Eos # 0.2 Baso # 0.0 PT INR APTT Sodium Potassium Chloride Carbon Dioxide Anion Gap BUN Creatinine Est GFR ( Amer) Est GFR (Non-Af Amer) Random Glucose Calcium Magnesium Total Bilirubin AST ALT Alkaline Phosphatase Total Protein Albumin Globulin Albumin/Globulin Ratio Hepatitis A IgM Ab Negative Hep Bs Antigen Negative Hep B Core IgM Ab Negative Hepatitis C Antibody Negative HIV 1&2 Antibody Screen Negative 07/14/16 07/14/16 06:18 06:18 WBC RBC Hgb Hct MCV MCH MCHC RDW Plt Count MPV Neut % (Auto) Lymph % (Auto) [place] % (Auto) Eos % (Auto) Baso % (Auto) Neut # Lymph # [place] # Eos # Baso # PT 11.6 INR 1.0 APTT 29 Sodium 137 Potassium 4.4 Chloride 102 Carbon Dioxide 23 Anion Gap 16 BUN 18 Creatinine 1.0 Est GFR ( Amer) > 60 Est GFR (Non-Af Amer) > 60 Random Glucose 106 Calcium 8.6 Magnesium 2.1 Total Bilirubin 1.0 AST 29 ALT 33 Alkaline Phosphatase 40 Total Protein 6.5 Albumin 4.0 Globulin 2.6 Albumin/Globulin Ratio 1.6 Hepatitis A IgM Ab Hep Bs Antigen Hep B Core IgM Ab Hepatitis C Antibody HIV 1&2 Antibody Screen Critical Care Progress Note - Nutrition Nutrition: Nutrition Category Date Time Status Heart Healthy Diet [DIET] Diets 07/14/16 Dinner Ordered NPO Diet [DIET] Diets 07/14/16 Breakfast Active Assessment/Plan - Assessment and Plan (Free Text) Assessment: 75 M with PMHx of HTN was sent from his PMD's office to the ED for 3rd degree heart block found on EKG. Plan: 3rd Degree Heart Block * HR 20-30s * Glucagon was given for reversal of B-mariah * Cardiology, Dr. Malik consulted- help appreciated. s/p transvenous pacemaker placement and cardiac catheterization with Dr. Rodriguez. Cardiac Cath- 50 % stenosis LAD. Pacer is set to 60bpm. * TSH, T4 WNL * Plan is for pacemaker placement today at 3pm. HTN * Held home medication: Metoprolol XL 200mg PO daily * Patient started on Cozaar 50mg PO daily which is held due hypotension. Prophylaxis * GI PPX: Protonix 40mg PO Daily * DVT PPX: Heparin 5000u SC Q12, SCDs * Heart Healthy Diet, NPO for pacemaker placement * Zofran PRN for nausea DW Dr. Rowe, Heydi CAO, PGY-1 <Arcadio Rowe S - Last Filed: 07/14/16 18:54> CCU Objective - Vital Signs / Intake & Output Intake and Output (Last 8hrs): Intake & Output 07/14/16 07/14/16 07/14/16 06:59 14:59 22:59 Intake Total 1420 480 60 Output Total 1050 850 200 Balance 370 -370 -140 Intake: IV 1000 Intake, IV Amount 420 480 60 Left Antecubital 420 480 60 Oral 0 0 Output: Urine 1050 850 200 Urine, Voided 1050 850 200 Other: # Bowel Movements 1 - Medications Active Medications: Active Medications Generic Name Dose Route Start Last Admin Trade Name Freq PRN Reason Stop Dose Admin Acetaminophen 650 mg 07/12/16 21:52 Tylenol 325mg Tab PO Q6 PRN Pain, Mild (1-3) Hydromorphone HCl 0.5 mg 07/14/16 18:04 Dilaudid IVP 07/14/16 20:04 Q15M PRN Pain, moderate (4-7) Vancomycin HCl/Dextrose 500 mg in 100 mls @ 67 mls/hr 07/14/16 19:00 Vancocin IVPB 07/19/16 19:01 Q12H JORDAN Losartan Potassium 50 mg 07/14/16 10:00 Cozaar PO DAILY JORDAN Ondansetron HCl 4 mg 04/24/17 22:15 Zofran Inj IVP Q6H PRN Nausea/Vomiting Ondansetron HCl 4 mg 07/14/16 18:04 Zofran Inj IVP 07/14/16 20:05 ONCE PRN Nausea/Vomiting Pantoprazole Sodium 40 mg 07/13/16 10:00 07/14/16 10:09 Protonix Ec Tab PO 40 mg DAILY JORDAN Administration - Patient Studies Lab Studies: Microbiology Studies 07/12/16 21:26 MRSA Culture (Admit) - Final Nose MRSA NOT DETECTED Lab Studies 07/14/16 07/14/16 07/14/16 Range/Units 06:18 06:18 06:18 WBC 6.8 (4.8-10.8) K/uL RBC 5.50 (4.40-5.90) Mil/uL Hgb 16.2 (12.0-18.0) g/dL Hct 49.0 (35.0-51.0) % MCV 89.1 (80.0-94.0) fL MCH 29.5 (27.0-31.0) pg MCHC 33.1 (33.0-37.0) g/dL RDW 13.7 (11.5-14.5) % Plt Count 121 L (130-400) K/uL MPV 8.9 (7.2-11.7) fL Neut % (Auto) 75.4 H (50.0-75.0) % Lymph % (Auto) 14.0 L (20.0-40.0) % [place] % (Auto) 7.2 (0.0-10.0) % Eos % (Auto) 2.8 (0.0-4.0) % Baso % (Auto) 0.6 (0.0-2.0) % Neut # 5.2 (1.8-7.0) K/uL Lymph # 1.0 (1.0-4.3) K/uL [place] # 0.5 (0.0-0.8) K/uL Eos # 0.2 (0.0-0.7) K/uL Baso # 0.0 (0.0-0.2) K/uL Differential Comment PT 11.6 (9.7-12.2) SECONDS INR 1.0 APTT 29 (21-34) SECONDS Sodium 137 (132-148) mmol/L Potassium 4.4 (3.6-5.2) mmol/L Chloride 102 (98-107) mmol/L Carbon Dioxide 23 (22-30) mmol/L Anion Gap 16 (10-20) BUN 18 (9-20) mg/dL Creatinine 1.0 (0.8-1.5) MG/DL Est GFR ( Amer) > 60 Est GFR (Non-Af Amer) > 60 Random Glucose 106 (75-110) mg/dL Calcium 8.6 (8.6-10.4) mg/dl Magnesium 2.1 (1.6-2.3) mg/dL Total Bilirubin 1.0 (0.2-1.3) mg/dL AST 29 (17-59) U/L ALT 33 (21-72) U/L Alkaline Phosphatase 40 (38-126) U/L Total Protein 6.5 (6.3-8.3) g/dL Albumin 4.0 (3.5-5.0) g/dL Globulin 2.6 (2.2-3.9) gm/dL Albumin/Globulin Ratio 1.6 (1.0-2.1) Laboratory Results - last 24 hr 07/14/16 07/14/16 07/14/16 06:18 06:18 06:18 WBC 6.8 RBC 5.50 Hgb 16.2 Hct 49.0 MCV 89.1 MCH 29.5 MCHC 33.1 RDW 13.7 Plt Count 121 L MPV 8.9 Neut % (Auto) 75.4 H Lymph % (Auto) 14.0 L [place] % (Auto) 7.2 Eos % (Auto) 2.8 Baso % (Auto) 0.6 Neut # 5.2 Lymph # 1.0 [place] # 0.5 Eos # 0.2 Baso # 0.0 Differential Comment PT 11.6 INR 1.0 APTT 29 Sodium 137 Potassium 4.4 Chloride 102 Carbon Dioxide 23 Anion Gap 16 BUN 18 Creatinine 1.0 Est GFR ( Amer) > 60 Est GFR (Non-Af Amer) > 60 Random Glucose 106 Calcium 8.6 Magnesium 2.1 Total Bilirubin 1.0 AST 29 ALT 33 Alkaline Phosphatase 40 Total Protein 6.5 Albumin 4.0 Globulin 2.6 Albumin/Globulin Ratio 1.6 Critical Care Progress Note - Nutrition Nutrition: Nutrition Category Date Time Status Heart Healthy Diet [DIET] Diets 07/14/16 Dinner Active Attending/Attestation - Attestation I have personally seen and examined this patient.: Yes I have fully participated in the care of the patient.: Yes I have reviewed all pertinent clinical information: Yes Notes (Text): 07/14/16 18:54 Patient seen and examined in the intensive care unit. Case discussed with house staff in the morning rounds. Status post permanent pacemaker insertion and stable Continue present treatment
--- NOTE | 2016-07-14 15:31 | RAD ---
HISTORY: s/p Transvenous pacemaker COMPARISON: 07/12/2016. FINDINGS: LUNGS: The lungs are well inflated and clear. PLEURA: No significant pleural effusion identified, no pneumothorax apparent. CARDIOVASCULAR: The heart is normal in size. A right-sided pacemaker lead terminates in the right ventricle. OSSEOUS STRUCTURES: No significant abnormalities. VISUALIZED UPPER ABDOMEN: Normal. OTHER FINDINGS: None. IMPRESSION: No acute findings. No pneumothorax.
[2016-07-14] MEDS ORDERED: Lidocaine 2% Inj (20ml) ONE (15:33)
[2016-07-14] MEDS ORDERED: ceFAZolin 1 gm FROZEN Premix 0 GM/0 ML ML IVPB ONE (15:33)
[2016-07-14] MEDS ORDERED: HEPARIN-NS 5,000 UNITS/500 ML 0 UNIT/0 ML BAG IV ONE (15:34)
[2016-07-14] MEDS ORDERED: Bacitracin 50,000 UNIT in Sodium Chloride 0.9% Irrig 1,000 ML IR SCH (15:37)
[2016-07-14] MEDS ORDERED: Propofol 10 mg/ml Inj (20 ML) ONE (16:27)
[2016-07-14] MEDS ORDERED: Midazolam 2 MG/2 ML VIAL ONE (16:27)
[2016-07-14] MEDS ORDERED: Succinylcholine Chloride 20 mg/ml Syr (5 ml) IV ONE (16:28)
[2016-07-14] MEDS ORDERED: Sodium Chloride 0.9% 1,000 ML IV ONE (16:45)
[2016-07-14] MEDS ORDERED: Vancomycin 1 gm/D5W 200 ml 1 GM/200 ML BAG IVPB ONE (16:50)
[2016-07-14] MEDS ORDERED: Lactated Ringer's 1,000 ML IV ONE (17:53)
[2016-07-14] MEDS ORDERED: HYDROmorphone 0.5 mg/0.5 ml ISec IVP PRN (18:04)
[2016-07-14] MEDS ORDERED: Lactated Ringer's 1,000 ML IV SCH (18:15)
[2016-07-14] MEDS: Vancomycin 500mg/D5W 100 ml 500 MG/100 ML BAG IVPB SCH (19:29)
--- NOTE | 2016-07-14 20:04 | RAD ---
PROCEDURE: Intraoperative Fluoroscopy. HISTORY: COMPLTE HEART BLOCK FINDINGS: Fluoroscopic assistance was provided for pacemaker placement. Please
--- NOTE | 2016-07-14 20:43 | PN ---
DATE: 07/14/2016 LOCATION: CCU bed #6. HISTORY OF PRESENT ILLNESS: I came to see him this morning prior to the insertion of permanent pacemaker by Dr. Malik. The patient remains in great spirits and joking around. I was with him this morning for quite some time explaining the procedure and the followup of the next few days, weeks, months and years. The daughter at the bedside joined, I met her for first time. We had a big, nice conversation. Eventually, I spoke personally with Dr. Malik who came earlier and expected to proceed with a permanent pacemaker insertion. Also discussed with cmm inspector, Dr. Rowe. The hospital stay has remained pretty much uneventful so far. A temporary pacemaker has been functioning quite well. I turned down the rate that was set at 60; I turned it down slowing over 2 minutes to 40 beats per minute to see if there was any AV synchrony. However, he remains in complete heart block and they put it way back to 60. Hemodynamically, he has remained totally stable. Denies any shortness of breath , palpitations or chest pain. His only problem is pain in the neck in the site of the transvenous pacemaker via the right jugular approach. Other than that, he remains totally asymptomatic. REVIEW OF SYSTEMS: Otherwise, negative. PHYSICAL EXAMINATION: GENERAL: Alert, oriented, in no distress whatsoever. VITAL SIGNS: Totally stable. Telemetry continuous cardiac monitoring showing a ventricular paced rhythm at 60 per minute; I left it put back at 60 per minute. Blood pressure about 130-140/70-80, afebrile. Respiratory rate unremarkable. NECK: From the cardiopulmonary viewpoint, jugular veins, etc. remains normal. LUNGS: Totally clear to auscultation. HEART: Normal in intensity. Slight systolic murmur, is chronic for years. ABDOMEN: Obese. No localized tenderness. CENTRAL NERVOUS SYSTEM: No focal deficit. Alert, oriented. Very, very good spirits, joking, and eager to proceed to get out and to go home, hopefully tomorrow before noontime. Again, discussed personally with Dr. Malik, the consultant luxury and [employer]. vice president [employer] (ex ), with Dr. Rowe, the cmm inspector, also discussed with Dr. Rodriguez who is the interventionalist who did the cardiac catheterization and coronary angiogram and put the transvenous pacer yesterday. All remains well and all ready to go, hopefully it will be this afternoon and out of here no later than tomorrow barring any unforeseen situations. We will resume, hopefully once out of here, depending upon the blood pressure will resume his metoprolol extended release that he has been taking for years at 200 mg if need be. I will discuss this with Dr. Malik prior to discharge , perhaps to set the rate to lower rate of 50, upper rate in the range of about 120 or so. I will leave it as such for now. Bo Stacy MD cc: 68 TT: 07/14/2016 20:43:07 Confirmation # [id number] Dictation # [id number] mn MTDD
--- NOTE | 2016-07-15 06:29 | CP.PCM.PN ---
<Rivera Arriola - Last Filed: 07/15/16 12:54> Subjective - Date & Time of Evaluation Date of Evaluation: 07/15/16 Time of Evaluation: 06:25 - Subjective Subjective: Cardiology Progress Note Dr. Malik Patient seen and examined at the bedside. No acute distress. No acute events overnight. Nursing staff reports no issues. The patient is POD #1 s/p permament dual-chamber pacemaker placement with Dr. Malik. The patient tolerated the procedure well. The patient is planned for DC home today. The patient presently denies all cardiopulmonary symptoms. 12 point review of systems performed and returned negative. Objective - Vital Signs/Intake and Output Vital Signs (last 24 hours): Temp Pulse Resp BP Pulse Ox 97.2 F L 67 17 124/70 93 L 07/15/16 00:00 07/15/16 04:30 07/15/16 04:30 07/15/16 04:28 07/15/16 04:30 Intake and Output: 07/14/16 07/15/16 18:59 06:59 Intake Total 540 460 Output Total 1050 600 Balance -510 -140 - Medications Medications: Current Medications Acetaminophen (Tylenol 325mg Tab) 650 mg PO Q6 PRN PRN Reason: Pain, Mild (1-3) Vancomycin HCl/Dextrose (Vancocin) 500 mg in 100 mls @ 67 mls/hr IVPB Q12H [facility] Stop: 07/19/16 19:01 Last Admin: 07/14/16 19:29 Dose: 67 mls/hr Losartan Potassium (Cozaar) 50 mg PO DAILY [facility] Ondansetron HCl (Zofran Inj) 4 mg IVP Q6H PRN PRN Reason: Nausea/Vomiting Pantoprazole Sodium (Protonix Ec Tab) 40 mg PO DAILY [facility] Last Admin: 07/14/16 10:09 Dose: 40 mg - Labs Labs: 07/14/16 06:18 07/14/16 06:18 PT 11.6 SECONDS (9.7-12.2) 07/14/16 06:18 INR 1.0 07/14/16 06:18 APTT 29 SECONDS (21-34) 07/14/16 06:18 - Additional Findings Additional findings: - Constitutional Appears: Well, No Acute Distress - Head Exam Head Exam: ATRAUMATIC, NORMAL INSPECTION, NORMOCEPHALIC - Eye Exam Eye Exam: EOMI, Normal appearance - ENT Exam ENT Exam: Mucous Membranes Moist, Normal Exam - Neck Exam Neck exam: Positive for: Full Rom, Normal Inspection. Negative for: Lymphadenopathy, Tenderness Additional comments: Dressings C/D/I No erythema about incision site No edudate minimal tenderness to palpation - Respiratory Exam Respiratory Exam: Clear to Auscultation Bilateral, NORMAL BREATHING PATTERN. absent: Rales, Rhonchi, Wheezes - Cardiovascular Exam Cardiovascular Exam: REGULAR RHYTHM, RRR, +S1, +S2. absent: Diastolic murmur, Systolic Murmur - GI/Abdominal Exam GI & Abdominal Exam: Normal Bowel Sounds, Soft. absent: Distended, Firm, Guarding, Tenderness - Extremities Exam Extremities exam: Positive for: normal capillary refill, normal inspection, pedal pulses present - Neurological Exam Neurological exam: Alert, CN II-XII Intact, Oriented x3 - Skin Skin Exam: Dry, Intact, Normal Color, Warm Assessment and Plan (1) Complete heart block Assessment & Plan: Cardiac Stable for DC home today Patient tolerated procedure well Patient instructed to follow up with PMD and Dr. Malik in his office/clinic every 6 months Patient will continue with home metoprolol Dr. Stacy will write for PO antibiotic for discharge patient has completed 2 post-op doses of vancomycin patient cardiac stable for discharge pacemaker functioning well Pacemaker placed - dual chamber - DDD 60/130 - Atrium: 3.5amp, 5.2 (sensing amp), 0.9V (threshold), 0.5ms (pulse width), 1084 (impedence) - Ventricle: 3.5amp, 8.3 (sensing amp), 0.7V (threshold), 0.5ms (pulse width) , 665 (impedence) - Temporary TVP removed Permanent pacemaker placement today 3pm with Dr. Malik - consent signed in chart - patient and family aware of procedure - all questions and concerns addressed on rounds at the bedside Transvenous pacemaker placed 07/13/[address] Rodriguez (set to 60bmp)- pacing wire at RV apex Avoid beta mariah medications (Holding home Toprol XL)- BP control with Cozaar 50mg PO daily Tylenol 650mg PO q6 PRN pain (1-3) 07/13/16 Cardiac Cath- 50% stenosis LAD- official report pending 07/12/16 EKG- complete, 3rd degree heart block at 31bpm, a physiologic axis, normal QRS duration and QTc interval, T wave abnormality in lateral leads, inferior infarct age undetermined, and RBBB Case Discussed with Dr. King Arriola PGY1 Status: Acute (2) HTN (hypertension) Status: Chronic <Jd Malik - Last Filed: 08/12/16 10:12> Objective - Vital Signs/Intake and Output Vital Signs (last 24 hours): Temp Pulse Resp BP Pulse Ox 98.3 F 76 16 145/80 96 07/15/16 12:00 07/15/16 12:00 07/15/16 12:00 07/15/16 11:28 07/15/16 12:00 - Labs Labs: 07/15/16 06:15 07/15/16 06:15 PT 11.6 SECONDS (9.7-12.2) 07/14/16 06:18 INR 1.0 07/14/16 06:18 APTT 29 SECONDS (21-34) 07/14/16 06:18 Attending/Attestation - Attestation I have personally seen and examined this patient.: Yes I have fully participated in the care of the patient.: Yes I have reviewed all pertinent clinical information, including history, physical exam and plan: Yes Notes (Text): 08/12/16 10:12 Patient post op after ppm dual chamber . No issues stable for d/c
[2016-07-15 06:44] LABS: CHLORIDE 102 mmol/L (98-107); POTASSIUM 4.2 mmol/L (3.6-5.2); SODIUM 136 mmol/L (132-148)
[2016-07-15 06:46] LABS: ALB/GLOB RATIO 1.4 (1.0-2.1); AST/SGOT 26 U/L (17-59); BILIRUBIN,TOTAL 1.1 mg/dL (0.2-1.3); CARBON DIOXIDE 23 mmol/L (22-30); GFR AFRICAN-AMERICAN > 60; TOTAL PROTEIN 6.1 g/dL (6.3-8.3)
[2016-07-15 06:47] LABS: ALKALINE PHOSPHATASE 35 U/L (38-126); ALT/SGPT 23 U/L (21-72); BLOOD UREA NITROGEN 17 mg/dL (9-20); CALCIUM 8.4 mg/dl (8.6-10.4); GLUCOSE,RANDOM 95 mg/dL (75-110); MAGNESIUM 2.1 mg/dL (1.6-2.3)
[2016-07-15 06:52] LABS: HEMATOCRIT 45.3 % (35.0-51.0); MEAN CELL VOLUME 88.9 fL (80.0-94.0); MEAN CORPUSCULAR HEMOGLOBIN 29.3 pg (27.0-31.0); MEAN PLATELET VOLUME 8.6 fL (7.2-11.7); RED CELL DISTRIBUTION WIDTH 13.8 % (11.5-14.5); WHITE BLOOD COUNT 5.7 K/uL (4.8-10.8)
[2016-07-15] MEDS: Vancomycin 500mg/D5W 100 ml 500 MG/100 ML BAG IVPB SCH (06:52)
--- NOTE | 2016-07-15 08:44 | RAD ---
HISTORY: Post Op, s/p PPM placement COMPARISON: No prior. FINDINGS: LUNGS: Mild venous congestion. PLEURA: No significant pleural effusion identified, no pneumothorax apparent. CARDIOVASCULAR: Mild cardiomegaly. Left-sided pacemaker. OSSEOUS STRUCTURES: No significant abnormalities. VISUALIZED UPPER ABDOMEN: Normal. OTHER FINDINGS: None. IMPRESSION: No active disease.
[2016-07-15] MEDS: Pantoprazole 40 mg EC Tab PO SCH (10:21)
[2016-07-15 12:01] VITALS: BP 145/80
--- NOTE | 2016-07-15 12:01 | CP.CCUPN ---
<Kim Soliz - Last Filed: 07/15/16 12:35> CCU Subjective - Physician Review Subjective (Free Text): Patient was seen and examined at bedside. S/P Pacemaker POD #1. Patient is ambulating, tolerating diet, denied any chest pain, shortness of breath. As per cardiology, patient is safe for discharge. Instructed to follow up with Dr. Stacy within [address] Malik in 6 months. CCU Objective - Vital Signs / Intake & Output Vital Signs (Last 4 hours): Vital Signs Temp Pulse Resp BP Pulse Ox 07/15/16 11:00 75 92 L 07/15/16 10:28 74 140/80 93 L 07/15/16 10:00 98 H 13 95 07/15/16 09:28 69 15 158/78 H 94 L 07/15/16 09:00 76 13 95 07/15/16 08:28 68 17 163/71 H 93 L 07/15/16 08:15 102 H 20 169/84 H 94 L 07/15/16 08:00 97.7 F 88 18 169/84 H 97 Intake and Output (Last 8hrs): Intake & Output 07/14/16 07/15/16 07/15/16 22:59 06:59 14:59 Intake Total 520 0 570 Output Total 500 600 Balance 20 -600 570 Weight 250 lb Intake: Intake, IV Amount 160 200 Left Antecubital 160 200 Oral 360 0 370 Output: Urine 500 600 Urine, Voided 500 600 Other: # Voids Urine, Voided 0 # Bowel Movements 0 - Physical Exam Head: Positive for: Atraumatic, Normocephalic Pupils: Positive for: PERRL Extroacular Muscles: Positive for: EOMI Conjunctiva: Positive for: Normal Mouth: Positive for: Moist Mucous Membranes Neck: Positive for: Normal Range of Motion Respiratory/Chest: Positive for: Clear to Auscultation, Good Air Exchange. Negative for: Respiratory Distress, Accessory Muscle Use, Decreased Breath Sounds Cardiovascular: Positive for: Bradycardic Abdomen: Positive for: Normal Bowel Sounds. Negative for: Tenderness, Distention Upper Extremity: Positive for: Normal Inspection, NORMAL PULSES. Negative for: Cyanosis, Edema Lower Extremity: Positive for: Normal Inspection, NORMAL PULSES. Negative for: Edema, CALF TENDERNESS Skin: Positive for: Warm, Dry, Normal Color Psychiatric: Positive for: Alert, Oriented x 3 - Medications Active Medications: Active Medications Generic Name Dose Route Start Last Admin Trade Name Freq PRN Reason Stop Dose Admin Acetaminophen 650 mg 07/12/16 21:52 Tylenol 325mg Tab PO Q6 PRN Pain, Mild (1-3) Losartan Potassium 50 mg 07/14/16 10:00 Cozaar PO DAILY JORDAN Pantoprazole Sodium 40 mg 07/13/16 10:00 07/15/16 10:21 Protonix Ec Tab PO Not Given DAILY JORDAN - Patient Studies Lab Studies: Microbiology Studies 07/12/16 21:26 MRSA Culture (Admit) - Final Nose MRSA NOT DETECTED Lab Studies 07/15/16 07/15/16 Range/Units 06:15 06:15 WBC 5.7 (4.8-10.8) K/uL RBC 5.10 (4.40-5.90) Mil/uL Hgb 15.0 (12.0-18.0) g/dL Hct 45.3 (35.0-51.0) % MCV 88.9 (80.0-94.0) fL MCH 29.3 (27.0-31.0) pg MCHC 33.0 (33.0-37.0) g/dL RDW 13.8 (11.5-14.5) % Plt Count 117 L (130-400) K/uL MPV 8.6 (7.2-11.7) fL Sodium 136 (132-148) mmol/L Potassium 4.2 (3.6-5.2) mmol/L Chloride 102 (98-107) mmol/L Carbon Dioxide 23 (22-30) mmol/L Anion Gap 15 (10-20) BUN 17 (9-20) mg/dL Creatinine 1.0 (0.8-1.5) MG/DL Est GFR ( Amer) > 60 Est GFR (Non-Af Amer) > 60 Random Glucose 95 (75-110) mg/dL Calcium 8.4 L (8.6-10.4) mg/dl Phosphorus 3.0 (2.5-4.5) mg/dL Magnesium 2.1 (1.6-2.3) mg/dL Total Bilirubin 1.1 (0.2-1.3) mg/dL AST 26 (17-59) U/L ALT 23 (21-72) U/L Alkaline Phosphatase 35 L (38-126) U/L Total Protein 6.1 L (6.3-8.3) g/dL Albumin 3.6 (3.5-5.0) g/dL Globulin 2.5 (2.2-3.9) gm/dL Albumin/Globulin Ratio 1.4 (1.0-2.1) Laboratory Results - last 24 hr 07/15/16 07/15/16 06:15 06:15 WBC 5.7 RBC 5.10 Hgb 15.0 Hct 45.3 MCV 88.9 MCH 29.3 MCHC 33.0 RDW 13.8 Plt Count 117 L MPV 8.6 Sodium 136 Potassium 4.2 Chloride 102 Carbon Dioxide 23 Anion Gap 15 BUN 17 Creatinine 1.0 Est GFR ( Amer) > 60 Est GFR (Non-Af Amer) > 60 Random Glucose 95 Calcium 8.4 L Phosphorus 3.0 Magnesium 2.1 Total Bilirubin 1.1 AST 26 ALT 23 Alkaline Phosphatase 35 L Total Protein 6.1 L Albumin 3.6 Globulin 2.5 Albumin/Globulin Ratio 1.4 Critical Care Progress Note - Nutrition Nutrition: Nutrition Category Date Time Status Heart Healthy Diet [DIET] Diets 07/14/16 Dinner Active Assessment/Plan - Assessment and Plan (Free Text) Assessment: 75 M with PMHx of HTN was sent from his PMD's office to the ED for 3rd degree heart block found on EKG. Plan: 3rd Degree Heart Block * HR 20-30s * Glucagon was given for reversal of B-mariah * Cardiology, Dr. Malik consulted- help appreciated. s/p transvenous pacemaker placement and cardiac catheterization with Dr. Rodriguez. Cardiac Cath- 50 % stenosis LAD. Pacer is set to 60bpm. * TSH, T4 WNL * S/P pacemaker placement POD #1 - as per cardiology, patient is safe for discharge. Patient is to follow up with Dr. Stacy within 1 week of discharge and Dr. Malik in 6 months. HTN * As per Dr. Stacy said the patient can continue taking Metoprolol XL 200mg PO daily Prophylaxis * GI PPX: Protonix 40mg PO Daily * DVT PPX: Heparin 5000u SC Q12, SCDs * Heart Healthy Diet * Zofran PRN for nausea DW Heydi Calderon DO, PGY-1 <AnshuVicki - Last Filed: 07/15/16 13:16> CCU Objective - Vital Signs / Intake & Output Vital Signs (Last 4 hours): Vital Signs Temp Pulse Resp BP Pulse Ox 07/15/16 12:00 98.3 F 74 16 96 07/15/16 11:28 70 145/80 95 07/15/16 11:00 75 92 L 07/15/16 10:28 74 140/80 93 L 07/15/16 10:00 98 H 13 95 07/15/16 09:28 69 15 158/78 H 94 L Intake and Output (Last 8hrs): Intake & Output 07/14/16 07/15/16 07/15/16 22:59 06:59 14:59 Intake Total 520 0 690 Output Total 500 600 275 Balance 20 -600 415 Weight 250 lb Intake: Intake, IV Amount 160 200 Left Antecubital 160 200 Oral 360 0 490 Output: Urine 500 600 275 Urine, Voided 500 600 275 Other: # Voids Urine, Voided 1 # Bowel Movements 0 - Medications Active Medications: Active Medications Generic Name Dose Route Start Last Admin Trade Name Freq PRN Reason Stop Dose Admin Acetaminophen 650 mg 07/12/16 21:52 Tylenol 325mg Tab PO Q6 PRN Pain, Mild (1-3) Losartan Potassium 50 mg 07/14/16 10:00 Cozaar PO DAILY JORDAN Pantoprazole Sodium 40 mg 07/13/16 10:00 07/15/16 10:21 Protonix Ec Tab PO Not Given DAILY JORDAN - Patient Studies Lab Studies: Microbiology Studies 07/12/16 21:26 MRSA Culture (Admit) - Final Nose MRSA NOT DETECTED Lab Studies 07/15/16 07/15/16 Range/Units 06:15 06:15 WBC 5.7 (4.8-10.8) K/uL RBC 5.10 (4.40-5.90) Mil/uL Hgb 15.0 (12.0-18.0) g/dL Hct 45.3 (35.0-51.0) % MCV 88.9 (80.0-94.0) fL MCH 29.3 (27.0-31.0) pg MCHC 33.0 (33.0-37.0) g/dL RDW 13.8 (11.5-14.5) % Plt Count 117 L (130-400) K/uL MPV 8.6 (7.2-11.7) fL Sodium 136 (132-148) mmol/L Potassium 4.2 (3.6-5.2) mmol/L Chloride 102 (98-107) mmol/L Carbon Dioxide 23 (22-30) mmol/L Anion Gap 15 (10-20) BUN 17 (9-20) mg/dL Creatinine 1.0 (0.8-1.5) MG/DL Est GFR ( Amer) > 60 Est GFR (Non-Af Amer) > 60 Random Glucose 95 (75-110) mg/dL Calcium 8.4 L (8.6-10.4) mg/dl Phosphorus 3.0 (2.5-4.5) mg/dL Magnesium 2.1 (1.6-2.3) mg/dL Total Bilirubin 1.1 (0.2-1.3) mg/dL AST 26 (17-59) U/L ALT 23 (21-72) U/L Alkaline Phosphatase 35 L (38-126) U/L Total Protein 6.1 L (6.3-8.3) g/dL Albumin 3.6 (3.5-5.0) g/dL Globulin 2.5 (2.2-3.9) gm/dL Albumin/Globulin Ratio 1.4 (1.0-2.1) Laboratory Results - last 24 hr 07/15/16 07/15/16 06:15 06:15 WBC 5.7 RBC 5.10 Hgb 15.0 Hct 45.3 MCV 88.9 MCH 29.3 MCHC 33.0 RDW 13.8 Plt Count 117 L MPV 8.6 Sodium 136 Potassium 4.2 Chloride 102 Carbon Dioxide 23 Anion Gap 15 BUN 17 Creatinine 1.0 Est GFR ( Amer) > 60 Est GFR (Non-Af Amer) > 60 Random Glucose 95 Calcium 8.4 L Phosphorus 3.0 Magnesium 2.1 Total Bilirubin 1.1 AST 26 ALT 23 Alkaline Phosphatase 35 L Total Protein 6.1 L Albumin 3.6 Globulin 2.5 Albumin/Globulin Ratio 1.4 Critical Care Progress Note - Nutrition Nutrition: Nutrition Category Date Time Status Heart Healthy Diet [DIET] Diets 07/14/16 Dinner Active Attending/Attestation - Attestation I have personally seen and examined this patient.: Yes I have fully participated in the care of the patient.: Yes I have reviewed all pertinent clinical information: Yes Notes (Text): 07/15/16 13:15 Doing great. s/p pacemaker. OK to discharge home
[2016-07-15 12:02] VITALS: RESP 16; TEMP 98.3; O2SAT 96
[2016-07-15 13:30] VITALS: PULSE 76
--- NOTE | 2016-07-15 18:36 | CARD ---
APPROVED REPORT EKG Measurement Heart [id number] <Conclusion> Sinus rhythm with AV dissociation and Idioventricular rhythm (COMPLETE HEART BLOCK) Right bundle branch block T wave abnormality, consider lateral ischemia Abnormal ECG
--- NOTE | 2016-07-16 08:35 | CARDCATH ---
PROCEDURE DATE: 07/13/2016 PROCEDURES: 1. Left heart catheterization. 2. Coronary angiogram. 3. Transvenous pacemaker placement. CLINICAL INDICATIONS: 1. Complete heart block. 2. Dizziness. 3. Chest pain. REFERRING PHYSICIANS: 1. Dr. Bo Stacy 2. Dr. Jd Malik PERFORMING PHYSICIAN: Dr. Reed Rodriguez DESCRIPTION OF PROCEDURE: After informed consent, patient was prepped and draped in the usual steril e fashion. Lidocaine 2% was given in the right neck for local anesthesia. Using micropuncture techn ique, 5-Tristanian sheath was introduced into right internal jugular vein. Under aseptic precautions, a temporary transvenous pacemaker was placed from the right IJ. After the placement of the temporary transvenous pacemaker, 2% lidocaine was given in the right groin for local anesthesia. Using micropuncture technique, 6-Tristanian sheath was introduced into right comm on femoral artery. Using the usual diagnostic catheters, left heart catheterization and coronary ang iogram was performed. FINDINGS: 1. Left main coronary artery is patent. 2. Proximal LAD is patent. Mid LAD and distal LAD has intramuscular course. Both mid LAD and dista l LAD has 50% stenotic lesions at the site of intramuscular course. 3. Left circumflex and obtuse marginal branches are patent. 4. Right coronary artery is dominant and patent. 5. LV ejection fraction is approximately 40%, mild global hypokinesis. EDP is 22. No gradient acro ss aortic valve. IMPRESSION: 1. Successful temporary transvenous pacemaker placement from right internal jugular vein. 2. Nonobstructive coronaries as described above. There are 50% stenotic lesions in the mid and dist al left anterior descending at the site of intramuscular course. 3. Mildly decreased left ventricular function with ejection fraction of 40%. Reed Rodriguez MD cc: [id number] TT: 07/16/2016 08:34:16 en
--- NOTE | 2016-07-21 10:54 | OP ---
PROCEDURE DATE: 07/14/2016 INDICATION: Complete heart block. The patient is a 75-year-old male who presented to the operating room due to complete heart block wit h a heart rate of 20s-30s, transferred to the ICU. Now in the OR for an implantation of a dual-chamb er permanent pacemaker. The patient was given antibiotics before the OR, 500 mg of vancomycin due to REACTION TO PENICILLIN I N THE PAST. The patient was transferred to the operating room to the operating table and was prepped and draped in a sterile fashion. Anesthesia was present. Anesthesia ____. The patient was using a C-arm. We were able to access the subclavian vein successfully. A wire was placed in the left subc lavian vein. Using blunt dissection, after incision to the skin, blunt dissection down to the prepec toralis fascia was successful, and the 9-Salvadorean sheath was placed where a Rufino RV lead was noted to be RV apex successfully without any complications using fluoro as guidance. The lead was fixed, tested, and found to be working appropriately. A second sheath was placed to all ow for a right atrial lead to be placed in the right atrium. This was a passive lead, which did not need to be fixed. It was actually passively stabilized in the right atrial appendage successfully wi thout any complications, tested, and found to be working appropriately. The pocket was then formed, and irrigation with antibiotic solution, and the generator dual-chamber pacemaker Rufino device was po sitioned connected to the 2 leads and placed in the pocket successfully. The pocket was closed with 2-0, 3-0, 4-0 suture fashion successfully, and using sterile dressing, the wound was dressed successf ully. The patient had a successful implantation of a dual-chamber pacemaker without any complications. Abo ut 10 mL EBL, and the patient was transferred the same day for eventual transfer back to the ICU wit hout any complications. Jd Malik MD cc: [id number] TT: 07/21/2016 10:48:02 jn
--- NOTE | 2016-07-21 23:56 | DS ---
FINAL DIAGNOSES: 1. Complete heart block. 2. Hypertensive heart disease. 3. Obesity. HISTORY OF PRESENT ILLNESS: The patient is a 75-year-old white male, known to me for many years, who presented to the office after he complained of some shortness of breath climbing stairs. I called him at home. I told him to come to the office. It is unusual for him. He never complains. However, in the office, on top of the table, walking around, etc., etc., he was a little more bradycardic than usual since he is on metoprolol, and an EKG disclosed complete heart block. Very long conversation to try to convince him and his that was present to go to the hospital immediately. It took me a good hour or more, as well as other issues, and what hospital, etc. He agreed to be hospitalized at [facility]. I rapid called the Emergency Room and spoke with Dr. Knowles, and he went to the Emergency Room and he was totally stable in complete heart block with total blood pressure was unremarkable and still hypertensive at that point because he was very upset, and heart rate stayed ventricular rhythm about 35 per minute, but was hemodynamically stable. He was transferred to the intensive care unit. Before going, I called Dr. Malik, cafeteria cashier, to alert him that we needed his help, consult, as well as his expertise due to this complete heart block, that this patient was going to need a permanent pacemaker. HOSPITAL COURSE: Was totally uneventful. He was kept in CCU overnight with external pacemaker, and the following morning underwent transvenous pacemaker insertion via right jugular approach by Dr. Rodriguez, who also did the coronary angiograph. The coronary angiogram showed some mild LAD disease, somewhere about 60 - 70% or so, requiring no intervention. The following day, on Tuesday, he underwent permanent pacemaker insertion by Dr. Malik, a dual-chamber DDD, with excellent results. He had prior to that prophylactic antibiotic and was continued for 2 more doses overnight. In the CCU the day of his discharge, he was properly stable, ate lunch, lungs and heart were stable, and totally afebrile. I made arrangements, gave him a prescription to be enrolled in the pacemaker surveillance program here at the [facility], and I gave him the prescription for that. Prior to that, I had a very long, extensive conversation with the resident, Dr. Arriola, who is assigned to Dr. Malik, and asked him to speak with Dr. Malik and re-program the pacemaker to a lower rate, around 50, and the upper rate around 120 or so. Also, I told them that I would take care of the antibiotic that I sent electronically from the office in the form of clindamycin , to be taken as ordered. PLAN: Rest at home for several days. Avoid getting the wound wet. Avoid holding the left arm motion in any significant way since the permanent pacemaker was implanted in the left infraclavicular area. He was to see me the following , a few days later, on Tuesday, and to check and to assess the situation. I also advised him to resume his antihypertensive medications he had been taking in the form of metoprolol 200 mg per day, and he has been doing so for many years; actually a over a decade. Bo Stacy MD cc: [id number] TT: 07/21/2016 23:55:44 nestor STAHL
== END 2016-07-15 13:45 | disposition home or self-care (01) | DRG 244 ==
LOC: C.ER 17:50 → C.9I 19:31
PROVIDERS: ADMIT Internal Medicine Cardiovascular Disease; ATTEND Internal Medicine Cardiovascular Disease
PROC: 4A023N7 Measurement of Cardiac Sampling and Pressure, Left Heart, Percutaneous Approach (ICD-10-PCS; principal; 2016-07-13)
PROC: B2111ZZ Fluoroscopy of Multiple Coronary Arteries using Low Osmolar Contrast (ICD-10-PCS; 2016-07-13)
PROC: B2151ZZ Fluoroscopy of Left Heart using Low Osmolar Contrast (ICD-10-PCS; 2016-07-13)
PROC: 02HK3JZ Insertion of Pacemaker Lead into Right Ventricle, Percutaneous Approach (ICD-10-PCS; 2016-07-14)
PROC: 0JH606Z Insertion of Pacemaker, Dual Chamber into Chest Subcutaneous Tissue and Fascia, Open Approach (ICD-10-PCS; 2016-07-14)
PROC: 02H63JZ Insertion of Pacemaker Lead into Right Atrium, Percutaneous Approach (ICD-10-PCS; 2016-07-14)
DX: I44.2 Atrioventricular block, complete (principal); I11.9 Hypertensive heart disease without heart failure; I25.10 Atherosclerotic heart disease of native coronary artery without angina pectoris; Z82.49 Family history of ischemic heart disease and other diseases of the circulatory system; Z87.891 Personal history of nicotine dependence; Z79.899 Other long term (current) drug therapy; E66.9 Obesity, unspecified; Z68.33 Body mass index [BMI] 33.0-33.9, adult